=== PATIENT | female | born 1940 | race Caucasian/White ===

== ENCOUNTER → 2017-03-04 | Outpatient (CLI) | payer MEDICARE, BC ==
[~2017-03-04] MED LIST: ACET-2321 PO; BUDE0.5A6 IH; CALC-41 PO; DABI150C PO; DIGO250T13 PO; DILT240C50 PO; FERR1TAB86 PO; GUAI600T PO; HYDR-3989 PO; IPRA3AMP AEROSOL; METF500T PO; MULT-934 PO; OMEP-29 PO; PRED5TAB PO; SIMV20TA89 PO; SODI14.1 NAS; [UNRECOGNIZED DRUG - CODE] PO
--- NOTE | 2017-03-04 09:54 | DI ---
EXAM: CHEST, PA LATERAL 0943 hours COMPARISON: 07/03/2015 HISTORY: ITS.REASON: J44.1 COPD; J47.1 Bronchiectasis with (acute) exacerbation; B96.5 . FINDINGS: The heart is enlarged. The pulmonary vascularity appears unremarkable. There is again seen increased interstitial markings seen at the periphery of the lungs appears similar to the prior exams. This is likely related to chronic pulmonary fibrotic changes. A superimposed infiltrate would be difficult to exclude although seems less likely. There is no evidence for pleural effusion. There is no evidence for a pneumothorax. No osseous abnormalities are identified. A chest port is noted entering through right jugular vein with the tip at the mid SVC. IMPRESSION: 1. Cardiomegaly. 2. Persistent chronic pulmonary fibrotic changes which appear stable compared to the prior exams. LOCATION OF DICTATION: [facility] [place] .
== END ==
LOC: IMA 09:19
PROVIDERS: ATTEND Internal Medicine Infectious Disease
DX: J47.1 Bronchiectasis with (acute) exacerbation (principal); B96.5 Pseudomonas (aeruginosa) (mallei) (pseudomallei) as the cause of diseases classified elsewhere; I51.7 Cardiomegaly